=== PATIENT | male | born 1995 | race African-American/Black ===

== ENCOUNTER 2017-02-09 11:40 | Emergency (ER) | payer MEDICAID ==
[~2017-02-09] VITALS: Ht 208.3 cm; Wt 54.9 kg
[2017-02-09 11:51] VITALS: BP 115/89
--- NOTE | 2017-02-09 13:55 | NUR ---
PT TO BED 3 AT THIS TIME.
--- NOTE | 2017-02-09 14:25 | NUR ---
PATIENT PRESENTS TO ED WITH C/O LEFT SCROTAL PAIN 10/10 WHEN WALKING SINCE WEDNESDAY;BUMP NOTED AT BASE OF THE [employer];DENIES N/V/D; SKIN IS PINK/WARM/DRY; AAOX4 WITH EVEN AND STEADY GAIT; LUNGS CLEAR BL; HR EVEN AND REGULAR; PT DENIES ANY CP, SOB, OR COUGH AT THIS TIME; PATIENT STATES PAIN OF 10/10 AT THIS TIME;PATIENT POSITIONED FOR COMFORT; HOB ELEVATED; BEDRAILS UP X2; BED DOWN. ER MD NAZANIN BE NOTIFIED.
--- NOTE | 2017-02-09 14:37 | NUR ---
ULTRASOUND AT BEDSIDE.
[2017-02-09] MEDS ORDERED: cefTRIAXone 250 MG in LIDOCAINE 1% ED 0.9 ML IM ONE (15:30)
[2017-02-09 16:02] VITALS: BP 124/86
--- NOTE | 2017-02-09 16:02 | NUR ---
Patient discharged with v/s stable. Written and verbal after care instructions given and explained. Patient alert, oriented and verbalized understanding of instructions. Ambulatory with steady gait. All questions addressed prior to discharge. ID band removed. Patient advised to follow up with PMD. Rx of NORCO,IBUPROFEN AND DOXYCYCLINE given. Patient educated on indication of medication including possible reaction and side effects. Opportunity to ask questions provided and answered.
[2017-02-11 06:25] LABS: CHLAMYDIA TRACHOMATIS AMP DNA Negative (Negative)
== END 2017-02-09 16:02 | disposition home or self-care (01) ==
LOC: MED 11:40
DX: N45.1 Epididymitis (principal)
CPT/HCPCS: 36415; 76870; 81002; 87491; 96372; 99285; J0696; J2001; Q0092

== ENCOUNTER 2020-07-16 19:31 | Emergency (ER) | payer MEDICAID, OTHER ==
[~2020-07-16] VITALS: Ht 182.9 cm; Wt 59.0 kg
--- NOTE | 2020-07-16 19:31 | NUR ---
PATIENT BIBA WITH C/O SZ, WITNESSED BY FAMILY AT HOME . PT STATES WAS DX WITH SZ LAST YEAR. TAKING KEPRA AND HAS MISSED A COUPLE OF DOSES YESTERDAY AND TODAY. DENIES N/V/D; SKIN IS PINK/WARM/DRY; AAOX3 . IS SLIGHTLY CONFUSED TO TIME. HAND COFFEE BLENDER ARE STRONG AND EQUAL. BRANDAN. LUNGS CLEAR BL; HR EVEN AND REGULAR; PT DENIES ANY FEVER, CP, SOB, OR COUGH AT THIS TIME; PATIENT STATES PAIN OF 3/10 AT THIS TIME, H/A; VSS; PATIENT POSITIONED FOR COMFORT; HOB ELEVATED; BEDRAILS UP X2; BED DOWN, WARM BLANKET GIVEN. ER MD MADE AWARE OF PT STATUS. PMH: CONRAD NKPINEDA
--- NOTE | 2020-07-16 19:31 | NUR ---
PT JULIANA ALS. TAKEN TO BED 4
[2020-07-16 19:42] VITALS: BP 97/55
--- NOTE | 2020-07-16 19:44 | NUR ---
Dr. Lisa is evaluating the patient at bedside.
[2020-07-16] MEDS ORDERED: levETIRAcetam 1,000 MG in NACL 0.9% 100 ML IV ONE (19:50)
[2020-07-16] MEDS ORDERED: levETIRAcetam 100 MG/ML VIAL IV ONE ×2 (19:56)
[2020-07-16 20:19] LABS: BASOPHILS % (AUTO) 0.3 % (0.0-2.0); EOSINOPHILS % (AUTO) 0.6 % (0.0-4.0); HEMATOCRIT 39.1 % (36-52); HEMOGLOBIN 12.8 g/dL (12.0-18.0); LYMPHOCYTES # (AUTO) 0.9 K/uL (2.0-11.5); LYMPHOCYTES % (AUTO) 14.9 % (20.5-51.1); MEAN CORPUSCULAR HEMOGLOBIN 32 pg (27-31); MEAN CORPUSCULAR HGB CONC 33 g/dL (33-37); MONOCYTES # (AUTO) 0.5 K/uL (0.8-1.0); MONOCYTES % (AUTO) 7.9 % (1.7-9.3); NEUTROPHILS # (AUTO) 4.7 K/uL (1.8-7.7); NEUTROPHILS % (AUTO) 76.3 % (42.2-75.2); PLATELET COUNT (AUTO) 167 K/uL (140-450); RED BLOOD CELL COUNT(AUTO) 3.99 MIL/uL (4.20-6.10); RED CELL DISTRIBUTION WIDTH 12.8 % (11.6-13.7); WHITE BLOOD COUNT (AUTO) 6.2 K/uL (4.8-10.8)
[2020-07-16 20:37] LABS: ALBUMIN 4.2 g/dL (3.4-5.0); CREATININE 1.3 mg/dL (0.6-1.3); POTASSIUM 4.2 mmol/L (3.5-5.1); TOTAL BILIRUBIN 0.4 mg/dL (0.0-1.0)
[2020-07-16 20:48] LABS: ANION GAP 12.4 (8-16); CARBON DIOXIDE 26.8 mmol/L (21-32)
--- NOTE | 2020-07-16 21:15 | NUR ---
GLU 66. IVETH CRACKERS AND JUICE GIVEN
--- NOTE | 2020-07-16 21:32 | NUR ---
PT TO BE DISCHARGED.
[2020-07-16 22:10] VITALS: BP 97/55
--- NOTE | 2020-07-16 22:10 | NUR ---
Patient discharged with v/s stable. Written and verbal after care instructions given and explained. Patient verbalized understanding. Ambulatory with steady gait. All questions addressed prior to discharge. Advised to follow up with PMD.
== END 2020-07-16 22:10 | disposition home or self-care (01) ==
LOC: MED 19:31
DX: R56.9 Unspecified convulsions (principal)
CPT/HCPCS: 36415; 80053; 85025; 96365; 99284; J1953

== ENCOUNTER 2020-08-03 05:08 | Emergency (ER) | payer OTHER ==
[~2020-08-03] VITALS: Ht 180.3 cm; Wt 59.0 kg
[2020-08-03 05:08] VITALS: BP 112/48
--- NOTE | 2020-08-03 05:08 | NUR ---
PATIENT PRESENTS TO ED VIA [facility] WITH C/O SEIZURE . PTSGIRLFRIEND HEARD COMMOTION AND FOUND PT IN ANOTHER ROOM SEIZING. LAST SZ APPROX 1 MONTH AGO DENIES N/V/D; SKIN IS PINK/WARM/DRY; LUNGS CLEAR BL; HR EVEN AND REGULAR; PT DENIES ANY FEVER, CP, SOB, OR COUGH AT THIS TIME; PATIENT STATES PAIN OF 0/10 AT THIS TIME; VSS; PATIENT POSITIONED FOR COMFORT; HOB ELEVATED; BEDRAILS UP X2 WITH SEIZURE PRECAUTIONS IN PLACE; BED DOWN. ER MD MADE AWARE OF PT STATUS.
--- NOTE | 2020-08-03 05:08 | NUR ---
PT BIBA TO BED 06.
[2020-08-03] MEDS ORDERED: levETIRAcetam 1,000 MG in NACL 0.9% 100 ML IV ONE (05:20)
[2020-08-03] MEDS ORDERED: levETIRAcetam 100 MG/ML VIAL IV ONE (05:59)
[2020-08-03] MEDS ORDERED: NACL 0.9% 1,000 ML IV ONE (06:15)
[2020-08-03] MEDS ORDERED: METOCLOPRAMIDE 10 MG/2 ML INJ VIAL IVP ONE (06:15)
[2020-08-03 07:21] VITALS: BP 90/47
--- NOTE | 2020-08-03 07:28 | NUR ---
recieved endrosement report from previous shift. pt bib ambulance for s/o seizure. no episodes while in ER. Keppra infusion finished. VSS. seizure pads in place. no other needs at this time. pt arousable with voice. no other s/sx.
[2020-08-03 07:49] LABS: BASOPHILS % (AUTO) 0.4 % (0.0-2.0); EOSINOPHILS % (AUTO) 0.4 % (0.0-4.0); HEMATOCRIT 35.3 % (36-52); HEMOGLOBIN 11.6 g/dL (12.0-18.0); LYMPHOCYTES # (AUTO) 1.2 K/uL (2.0-11.5); LYMPHOCYTES % (AUTO) 19.3 % (20.5-51.1); MEAN CORPUSCULAR HEMOGLOBIN 33 pg (27-31); MEAN CORPUSCULAR HGB CONC 33 g/dL (33-37); MONOCYTES # (AUTO) 0.4 K/uL (0.8-1.0); MONOCYTES % (AUTO) 5.9 % (1.7-9.3); NEUTROPHILS # (AUTO) 4.8 K/uL (1.8-7.7); PLATELET COUNT (AUTO) 137 K/uL (140-450); RED BLOOD CELL COUNT(AUTO) 3.53 MIL/uL (4.20-6.10); RED CELL DISTRIBUTION WIDTH 12.4 % (11.6-13.7); WHITE BLOOD COUNT (AUTO) 6.5 K/uL (4.8-10.8)
[2020-08-03 08:46] LABS: ANION GAP 11.5 (8-16); CARBON DIOXIDE 25.2 mmol/L (21-32); CREATININE 1.2 mg/dL (0.6-1.3); POTASSIUM 3.7 mmol/L (3.5-5.1)
--- NOTE | 2020-08-05 23:14 | NUR ---
LATE ENTRY- Normal saline 0.9% IV fluids discontinued at 0730
== END 2020-08-03 09:10 | disposition home or self-care (01) ==
LOC: MED 05:08
DX: R56.9 Unspecified convulsions (principal)
CPT/HCPCS: 36415; 80048; 85025; 96361; 96365; 96375; 99284; J1953; J2765; J7030

== ENCOUNTER 2020-08-10 09:36 | Emergency (ER) | payer OTHER ==
[~2020-08-10] VITALS: Ht 182.9 cm; Wt 63.0 kg
[2020-08-10 09:38] VITALS: BP 103/62
--- NOTE | 2020-08-10 09:38 | NUR ---
CAME IN ER THIS 24 YEAR OLD, MALE, PER STRETCHER VIA AMBULANCE FROM HOME, WITH CHIEF COMPLAINTS OF SEIZURE 30MINS AGO , 2 MINS DURATION AND HEADACHE 3/10, AWAKE, ALERT, ORIENTEDX4, BREATHING SPONTANEOUSLY AT ROOM AIR, NOT IN DISTRESS NOTED. INITIAL VITAL SIGNS TAKEN T-98.7, RR-18, HR-98, BP-119/68 S3WUL-01% AT ROOM AIR. WITH HISTORY OF SEISURE ON KEPPRA 200MG DAILY BUT ACCORDING HIM THE LAST DOSE TAKEN 2DAYS AGO. NO OTHER MEDICAL/NO SURGICAL HISTORY. SAFETY MEASURES IN PLACE AND CONTINUE MONITOR.
--- NOTE | 2020-08-10 09:39 | NUR ---
Patient BIBA ALS, transferred to bed 4. RN evaluating the patient at bedside.
--- NOTE | 2020-08-10 09:47 | NUR ---
Dr. Lisa is evaluating the patient at bedside.
[2020-08-10] MEDS ORDERED: levETIRAcetam 500 MG TAB PO ONE (09:55)
--- NOTE | 2020-08-10 10:41 | NUR ---
FULLY AWAKE AND ALERT, NO EPISODE OF ANY SEIZURE, VITAL SIGNS STABLE.
--- NOTE | 2020-08-10 11:14 | NUR ---
Dr. Lisa is evaluating the patient at bedside.
--- NOTE | 2020-08-10 11:55 | NUR ---
DR. WHEELER MADE DISHARGE ORDER AND CARRIED OUT, HOME INSTRUCTIONS AND PRESCRIPTION GIVEN, VERBALIZED UNDERSTANDING.
[2020-08-10 12:04] VITALS: BP 105/63
== END 2020-08-10 11:55 | disposition home or self-care (01) ==
LOC: MED 09:36
DX: R56.9 Unspecified convulsions (principal)
CPT/HCPCS: 99283

== ENCOUNTER 2020-08-18 10:25 | Emergency (ER) | payer OTHER ==
[~2020-08-18] VITALS: Ht 180.3 cm; Wt 70.3 kg
[2020-08-18 10:27] VITALS: BP 114/56
--- NOTE | 2020-08-18 10:31 | NUR ---
biba to bed 06
--- NOTE | 2020-08-18 10:32 | NUR ---
24 y/o male biba from home s/p 1 min tonic clonic seizure, now postictal. no facial trauma noted. pt stated he did not take his keppra last night because he fell asleep too early and he doesnt like how it makes him feel. a/o x 3. gcs 12. BS 95. per medic pt was drooling/bleeding from the mouth and was aggressive on transport. pt is calm and cooperative at this time. seizure precautions in place. Pt laying in bed, bed in lowest position, brakes locked, x2 siderails up. pmh: seizures nka
--- NOTE | 2020-08-18 10:55 | NUR ---
DR CERDA AT BEDSIDE FOR FURTHER EVALUATION
[2020-08-18] MEDS ORDERED: NACL 0.9% 500 ML IV ONE (11:05)
[2020-08-18] MEDS ORDERED: levETIRAcetam 1,500 MG in NACL 0.9% 100 ML IV ONE (11:05)
[2020-08-18] MEDS ORDERED: levETIRAcetam 100 MG/ML VIAL IV ONE (11:11)
[2020-08-18 11:14] LABS: BASOPHILS % (AUTO) 0.3 % (0.0-2.0); EOSINOPHILS # (AUTO) 0.1 K/uL (0-0.4); EOSINOPHILS % (AUTO) 0.9 % (0.0-4.0); HEMATOCRIT 42.3 % (36-52); HEMOGLOBIN 13.7 g/dL (12.0-18.0); LYMPHOCYTES % (AUTO) 48.2 % (20.5-51.1); MEAN CORPUSCULAR HEMOGLOBIN 33 pg (27-31); MEAN CORPUSCULAR HGB CONC 32 g/dL (33-37); MEAN CORPUSCULAR VOLUME 101.1 fL (80-94); MONOCYTES # (AUTO) 0.6 K/uL (0.8-1.0); MONOCYTES % (AUTO) 8.8 % (1.7-9.3); NEUTROPHILS # (AUTO) 2.6 K/uL (1.8-7.7); NEUTROPHILS % (AUTO) 41.8 % (42.2-75.2); PLATELET COUNT (AUTO) 222 K/uL (140-450); RED BLOOD CELL COUNT(AUTO) 4.18 MIL/uL (4.20-6.10); RED CELL DISTRIBUTION WIDTH 12.7 % (11.6-13.7); WHITE BLOOD COUNT (AUTO) 6.3 K/uL (4.8-10.8)
--- NOTE | 2020-08-18 11:14 | NUR ---
pt states, " I really do not get Keppra or any medication at all". " I really am just getting irritated, I do not want it, I just want to go." explained to pt adverse reactions of not complying with medication and pt states it is okay with them. Dr Lay made aware.
[2020-08-18 11:29] LABS: ALBUMIN 4.4 g/dL (3.4-5.0); ANION GAP 24.4 (8-16); CARBON DIOXIDE 18.3 mmol/L (21-32); CREATININE 1.5 mg/dL (0.6-1.3); POTASSIUM 3.7 mmol/L (3.5-5.1); TOTAL BILIRUBIN 0.2 mg/dL (0.0-1.0)
[2020-08-18 11:34] VITALS: BP 114/56
--- NOTE | 2020-08-18 11:35 | NUR ---
Patient does not wish to proceed with medical care recommended by Dr. Lay. Patient given information related to possible complications, up to and including , which could occur as a result of leaving hospital at this time. Patient verbalizes understanding of risks involved leaving against medical advice. Patient has signed AMA form.
== END 2020-08-18 11:35 | disposition left against medical advice (07) ==
LOC: MED 10:25
DX: R56.9 Unspecified convulsions (principal); F17.200 Nicotine dependence, unspecified, uncomplicated; F12.90 Cannabis use, unspecified, uncomplicated
CPT/HCPCS: 36415; 80053; 85025; 99283; J1953; 99281; J7030

== ENCOUNTER 2020-09-04 04:00 | Emergency (ER) | payer OTHER ==
[~2020-09-04] VITALS: Ht 177.8 cm; Wt 69.9 kg
[2020-09-04] MEDS ORDERED: levETIRAcetam 500 MG TAB PO ONE (04:05)
[2020-09-04] MEDS ORDERED: ACETAMINOPHEN EXTRA STRENGTH 500 MG TAB PO ONE (04:05)
[2020-09-04 04:09] VITALS: BP 104/61
--- NOTE | 2020-09-04 04:15 | NUR ---
24 Y/O M BIBA FROM HOME FOR WITNESSED SEIZURE, EMR WAS NOT ABLE TO GIVE A TIME OF HOW LONG PT WAS UNCONSCIOUS. PT WAS DROWSY AND UNABLE TO ANSWER QUESTIONS IN AMB. PT NOW A&O X4, ABLE TO MOVE ALL EXTREMITIES, C/O HEADACHE AND HEAD PAIN THAT RADIATES TO NECK. SEIZURE PRECAUTIONS WERE PUT INTO PLACE, LIGHTS DIMMED AND RAILS PADDED. PT IS CONNECTED TO CARDIAC AND PULSE OXIMETER FOR MONITORING. LABS WERE DRAWN AND SENT TO LAB. PT RESTING COMFORTABLY IN BED. PT BELONGINGS WITH HIM. PT STATED HE TAKES KEPPRA AT HOME, BUT DOES NOT TAKE IT AT HOME BECAUSE IT CAUSES HIM BAD HEADACHES. PMH: SEIZURES. NKA.
[2020-09-04 04:28] LABS: BASOPHILS % (AUTO) 0.7 % (0.0-2.0); EOSINOPHILS % (AUTO) 0.3 % (0.0-4.0); HEMATOCRIT 43.3 % (36-52); LYMPHOCYTES # (AUTO) 2.4 K/uL (2.0-11.5); LYMPHOCYTES % (AUTO) 35.7 % (20.5-51.1); MEAN CORPUSCULAR HEMOGLOBIN 33 pg (27-31); MEAN CORPUSCULAR HGB CONC 32 g/dL (33-37); MEAN CORPUSCULAR VOLUME 100.8 fL (80-94); MONOCYTES # (AUTO) 0.4 K/uL (0.8-1.0); MONOCYTES % (AUTO) 6.1 % (1.7-9.3); NEUTROPHILS # (AUTO) 3.8 K/uL (1.8-7.7); NEUTROPHILS % (AUTO) 57.2 % (42.2-75.2); PLATELET COUNT (AUTO) 172 K/uL (140-450); RED CELL DISTRIBUTION WIDTH 12.7 % (11.6-13.7); WHITE BLOOD COUNT (AUTO) 6.6 K/uL (4.8-10.8)
[2020-09-04 04:37] LABS: ANION GAP 21.5 (8-16); CARBON DIOXIDE 21.4 mmol/L (21-32); CREATININE 1.5 mg/dL (0.6-1.3); POTASSIUM 4.9 mmol/L (3.5-5.1)
[2020-09-04 05:32] LABS: BARBITURATE, URINE NEGATIVE ng/ml (NEG <=200); BENZODIAZEPINE, URINE NEGATIVE ng/mL (NEG <=200); CANNABINOID, URINE POSITIVE ng/mL (NEG <=50); COCAINE, URINE NEGATIVE ng/mL (NEG <=300); OPIATE, URINE NEGATIVE ng/mL (NEG <=2000); PHENCYCLIDINE SCREEN,URINE NEGATIVE ng/mL (NEG <=25)
[2020-09-04 06:07] VITALS: BP 104/61
== END 2020-09-04 06:07 | disposition home or self-care (01) ==
LOC: MED 04:00
DX: R56.9 Unspecified convulsions (principal)
CPT/HCPCS: 36415; 80048; 80305; 85025; 99283

== ENCOUNTER 2021-07-23 20:49 | Emergency (ER) | payer OTHER ==
[2021-07-23] MEDS ORDERED: LEVE1000 PO ×2 (21:43→23:56)
--- NOTE | 2021-07-23 22:06 | NUR ---
Patient does not wish to proceed with medical care recommended by DR OGDEN. Patient given information related to possible complications, up to and including , which could occur as a result of leaving hospital at this time. Patient verbalizes understanding of risks involved leaving against medical advice. Patient has signed AMA form.
== END 2021-07-23 22:06 | disposition left against medical advice (07) ==
LOC: MED 20:49
DX: R56.9 Unspecified convulsions (principal)
CPT/HCPCS: 99283

== ENCOUNTER 2021-10-27 14:50 | Emergency (ER) | payer OTHER ==
[~2021-10-27] VITALS: Ht 182.9 cm; Wt 54.4 kg
[~2021-10-27 14:50] MED LIST: LEVE1000 PO
--- NOTE | 2021-10-27 14:50 | NUR ---
JULIANA ALS TAKEN TO BED 7
[2021-10-27 14:52] VITALS: BP 110/69
[2021-10-27] MEDS ORDERED: levETIRAcetam 500 MG TAB PO ONE (15:05)
--- NOTE | 2021-10-27 15:09 | NUR ---
LAB AT BEDSIDE
--- NOTE | 2021-10-27 15:20 | NUR ---
26/M BIBA FROM HOME. PER EMS FAMILY CALLED 911 STATING PATIENT HAD A WITNESSED TONIC CLONIC SEIZURE. STATES PATIENT HAS HX OF SEIZURES AND TAKES KEPPRA, PATIENT STATING "I'M NOT SURE IF I TOOK MY DOSE LAST NIGHT." ON SCENE PATIENT HAD ORAL TRAUMA AND ONE EPISODE OF INCONTINENCE NOTED. PATIENT AOX4 ON ARRIVAL, ANSWERING QUESTIONS APPROPRIATELY. PATIENT C/O 8/10 HEADACHE UPON ARRIVAL, PATIENT DENIES ANY OTHER COMPLAINTS AT THIS TIME.
[2021-10-27 15:26] LABS: BASOPHILS % (AUTO) 0.4 % (0.0-2.0); EOSINOPHILS % (AUTO) 0.3 % (0.0-4.0); HEMATOCRIT 40.3 % (36-52); HEMOGLOBIN 13.3 g/dL (12.0-18.0); LYMPHOCYTES # (AUTO) 1.4 K/uL (2.0-11.5); LYMPHOCYTES % (AUTO) 21.5 % (20.5-51.1); MEAN CORPUSCULAR HEMOGLOBIN 32 pg (27-31); MEAN CORPUSCULAR HGB CONC 33 g/dL (33-37); MONOCYTES # (AUTO) 0.5 K/uL (0.8-1.0); MONOCYTES % (AUTO) 7.2 % (1.7-9.3); NEUTROPHILS # (AUTO) 4.6 K/uL (1.8-7.7); NEUTROPHILS % (AUTO) 70.6 % (42.2-75.2); PLATELET COUNT (AUTO) 178 K/uL (140-450); RED BLOOD CELL COUNT(AUTO) 4.19 MIL/uL (4.20-6.10); RED CELL DISTRIBUTION WIDTH 12.7 % (11.6-13.7); WHITE BLOOD COUNT (AUTO) 6.4 K/uL (4.8-10.8)
--- NOTE | 2021-10-27 15:43 | NUR ---
pt had episode of vomit: 100ml , notified
[2021-10-27 16:01] LABS: ANION GAP 14.6 (8-16); CARBON DIOXIDE 25.7 mmol/L (21-32); POTASSIUM 4.3 mmol/L (3.5-5.1)
[2021-10-27 16:02] LABS: ALBUMIN 4.2 g/dL (3.4-5.0); CREATININE 1.2 mg/dL (0.6-1.3); TOTAL BILIRUBIN 0.3 mg/dL (0.0-1.0)
[2021-10-27 16:03] LABS: MAGNESIUM 2.3 mg/dL (1.8-2.4)
--- NOTE | 2021-10-27 17:00 | NUR ---
IV removed, catheter intact and site benign. Applied folded 4x4 gauze and tape to stop bleeding.
--- NOTE | 2021-10-27 17:09 | NUR ---
Patient discharged with v/s stable. Written and verbal after care instructions ABOUT SEIZURES given and explained. Patient verbalized understanding. Wheel Chair Assisted with to car. All questions addressed prior to discharge. Advised to follow up with PMD.
--- NOTE | 2021-10-27 17:10 | NUR ---
The patient's care was reviewed and supervised by Sue Severino RN.
[2021-10-27 17:11] VITALS: BP 102/71
== END 2021-10-27 17:11 | disposition home or self-care (01) ==
LOC: MED 14:50
DX: G40.89 Other seizures (principal); R51.9 Headache, unspecified; F12.90 Cannabis use, unspecified, uncomplicated; Z79.899 Other long term (current) drug therapy
CPT/HCPCS: 36415; 80053; 83735; 84100; 85025; 99283

== ENCOUNTER 2022-10-01 01:05 | Emergency (ER) | payer OTHER ==
[~2022-10-01] VITALS: Ht 172.7 cm; Wt 59.0 kg
--- NOTE | 2022-10-01 01:12 | NUR ---
PT JULIANA ALS. TAKEN TO BED 3
[2022-10-01 01:22] VITALS: BP 127/72
--- NOTE | 2022-10-01 01:55 | NUR ---
20G IV CATH PLACED IN R AC BLOOD OBTAINED AND SENT TO LAB
[2022-10-01] MEDS ORDERED: ACETAMINOPHEN EXTRA STRENGTH 500 MG TAB PO ONE (02:20)
--- NOTE | 2022-10-01 02:52 | NUR ---
MOM AT BEDSIDE. PT MORE ALERT. A&OX4. HOB ELEVATED. SZ PADS PLACED ON BED RAILS X2
[2022-10-01 03:05] LABS: ANION GAP 19.4 (8-16); CARBON DIOXIDE 23.2 mmol/L (21-32); CREATININE 1.3 mg/dL (0.6-1.3); POTASSIUM 4.6 mmol/L (3.5-5.1)
[2022-10-01] MEDS ORDERED: levETIRAcetam 500 MG TAB PO ONE (03:55)
[2022-10-01] MEDS ORDERED: levETIRAcetam 500 MG TAB ONE (03:57)
--- NOTE | 2022-10-01 03:58 | NUR ---
Patient reported, last does of Keppra given ~ 2200 PM, Dr. Avery notified.
[2022-10-01 04:17] VITALS: BP 127/72
--- NOTE | 2022-10-01 04:17 | NUR ---
Patient discharged with v/s stable. Written and verbal after care instructions given and explained. Patient verbalized understanding. Ambulatory with by parent. All questions addressed prior to discharge. Advised to follow up with PMD.
== END 2022-10-01 04:17 | disposition home or self-care (01) ==
LOC: MED 01:05
DX: G40.89 Other seizures (principal); Z79.899 Other long term (current) drug therapy
CPT/HCPCS: 36415; 80048; 99283

== ENCOUNTER 2024-03-14 02:53 | Emergency (ER) | payer OTHER ==
[~2024-03-14] VITALS: Ht 180.3 cm; Wt 59.0 kg
[2024-03-14 03:04] VITALS: BP 124/75; PULSE 76; RESP 16; TEMP 98; O2SAT 99
[2024-03-14 03:06] VITALS: O2SAT 99
[2024-03-14] MEDS: LIDOCAINE/EPI 1% 1:100000 20 ML VIAL INJ ONE (03:38)
[2024-03-14] MEDS ORDERED: IBUP-2213 PO (04:09)
== END 2024-03-14 04:17 | disposition home or self-care (01) ==
LOC: MED 02:53
DX: S01.511A Laceration without foreign body of lip, initial encounter (principal); Z86.69 Personal history of other diseases of the nervous system and sense organs; Z79.1 Long term (current) use of non-steroidal anti-inflammatories (NSAID); Z79.899 Other long term (current) drug therapy; W22.8XXA Striking against or struck by other objects, initial encounter; Y93.89 Activity, other specified; Y92.89 Other specified places as the place of occurrence of the external cause; Y99.8 Other external cause status
CPT/HCPCS: 12011; 99282; J2001